=== PATIENT | female | born 1995 | race Asian ===

== ENCOUNTER 2018-10-27 10:32 | Emergency (ER) | payer MEDICAID, OTHER ==
[~2018-10-27] VITALS: Ht 157.5 cm; Wt 85.8 kg
[~2018-10-27 10:32] MED LIST: DOCU-131 PO; IBUP-1222 PO; PREN1TAB27 PO; iron PO
--- NOTE | 2018-10-27 10:52 | NUR ---
TASK RN: FIRST CONTACT WITH PT. 22 Y/O FEMALE PRESENTS TO ED WITH C/O VAGINAL BLEEDING. PER PT "I AM . I DON'T KNOW HOW FAR ALONG. I TOOK A TEST IN THE BEGINNING OF SEPTEMBER AND IT WAS POSITIVE. MY LAST MENSTRUAL PERIOD WAS 08/26/2018. FOR THE LAST MONTH I'VE BEEN SPOTTING AND HAVE HAD SOME CRAMPING HERE AND THERE. I WAS SPOTTING AND THEN ONE DAY LAST WEEK I HAD SOME RED BLOOD WHEN I SPOTTED. I HAVEN'T HAD ANY SPOTTING SINCE TUESDAY. SOMETIMES I FEEL LIKE I HAVE TO REALLY PEE, THEN THERE ISN'T MUCH THAT COMES OUT." PT PLACED ON CONT PULSE OX, NIBP. NO C/O V/D, TRAUMA, SYNCOPE, CP, SOB. FRIEND BEDSIDE.
--- NOTE | 2018-10-27 11:00 | NUR ---
BEDSIDE REPORT TO REA ALLEN.
--- NOTE | 2018-10-27 11:03 | NUR ---
UA WALKED TO LAB
[2018-10-27 11:15] LABS: CULTURE INDICATED? YES; MICROSCOPIC INDICATED
--- NOTE | 2018-10-27 11:23 | NUR ---
program technician at bedside to collect ordered blood sample.
--- NOTE | 2018-10-27 11:48 | NUR ---
Pt sitting in bed talking with friend at bedside, LÁZARO, denies needs.
[2018-10-27 12:38] VITALS: BP 93/73
--- NOTE | 2018-10-27 12:38 | NUR ---
POC discussed with pt and her friend who is at bedside. Pt denies other needs.
--- NOTE | 2018-10-27 13:01 | NUR ---
Pt in [place] at this time.
--- NOTE | 2018-10-27 13:40 | NUR ---
Pt back from [place], resting in bed, LÁZARO.
--- NOTE | 2018-10-27 14:00 | NUR ---
Report to Joana LUCIA.
== END 2018-10-27 15:21 | disposition home or self-care (01) ==
LOC: ED 11:15
DX: O23.11 Infections of bladder in pregnancy, first trimester (principal); O46.91 Antepartum hemorrhage, unspecified, first trimester; Z3A.10 10 weeks gestation of pregnancy
CPT/HCPCS: 36415; 76801; 81001; 84702; 86901; 87086; 99284